=== PATIENT | female | born 1990 | race Caucasian/White ===

== ENCOUNTER 2016-09-20 15:24 | Emergency (ER) | payer BC, OTHER ==
[2016-09-20 16:09] VITALS: BP 122/67
--- NOTE | 2016-09-20 16:31 | UC ---
Abdominal Pain Female HPI - HPI Summary HPI Summary: pt c/o right side abdominal pain X 6 days. Pt has history of IBS and has frequent loose stools, pt reports that her stools have been more watery. Pt also , has positive history of ovarian cysts. Pt denies frequency, urgency, and dysuria with urination. Pt denies risk for or any unusual vaginal discharge. Pt has positive exposure to gastroenteritis - History of Current Complaint Chief Complaint: UCAbdominalPain Stated Complaint: LOWER RIGHT ABDOMINAL PAIN Time Seen by Provider: 09/20/16 16:12 Hx Obtained From: Patient Hx Last Menstrual Period: 2 WKS AGO ?: No Onset/Duration: Gradual Onset, Lasting Days Timing: Constant Severity Initially: Mild Severity Currently: Mild Location: Discrete At: RUQ, Discrete At: RLQ Radiates: No Radiates to: Back, Flank Character: Dull, Sharp Aggravating Factor(s): Food, Movement, Deep Breaths Alleviating Factor(s): NPO Associated Signs and Symptoms: Positive: Nausea, Diarrhea - stools more loose than baseline Allergies/Adverse Reactions: Allergies Allergy/AdvReac Type Severity Reaction Status Date / Time No Known Allergies Allergy Verified 09/20/16 16:08 PMH/Surg Hx/FS Hx/Imm Hx Previously Healthy: Yes Endocrine History Of: Denies: Diabetes, Thyroid Disease, Hyperthyroidism, Hypothyroidism, Dyslipidemia Cardiovascular History Of: Denies: Cardiac Disorders, Hypertension, Pacemaker/ICD, Myocardial Infarction , Congestive Heart Failure, Atrial Fibrillation, Deep Vein Thrombosis, Bleeding Disorders Respiratory History Of: Reports: Asthma - Inhaler use 3 years ago associated with pneumonia. Denies: COPD, Bronchitis, Pneumonia, Pulmonary Embolism GI/ History Of: Denies: Gastroesophageal Reflux, Ulcer, Gastrointestinal Bleed, Gall Bladder Disease, Kidney Stones, Diverticulitis, Renal Disease, Urosepsis Neurological History Of: Reports: Migraine Denies: TIA, CVA, Dementia, Seizures Psychological History Of: Reports: Depression Denies: Anxiety, Bipolar Disorder, Schizophrenia, Post Traumatic Stress Disorder Cancer History Of: Denies: Lung Cancer, Colorectal Cancer, Breast Cancer, Prostate Cancer, Cervical Cancer Other History Of: Negative For: HIV, Hepatitis B, Hepatitis C - Surgical History Surgical History: None - Family History Known Family History: Positive: Other - positive [facility] for GI disorder - Social History Lives: With Family Alcohol Use: None Substance Use Type: None Smoking Status (MU): Never Smoked Tobacco - Immunization History Most Recent Influenza Vaccination: may 2015 Review of Systems Constitutional: Negative Skin: Negative Eyes: Negative ENT: Negative Respiratory: Negative Cardiovascular: Negative Gastrointestinal: Abdominal Pain Genitourinary: Negative Motor: Negative Neurovascular: Negative Musculoskeletal: Negative Neurological: Negative Psychological: Negative All Other Systems Reviewed And Are Negative: Yes Physical Exam Triage Information Reviewed: Yes Appearance: Well-Appearing Vital Signs: Initial Vital Signs Temp 97.9 F 09/20/16 16:02 Pulse 97 09/20/16 16:02 Resp 16 09/20/16 16:02 BP 122/67 09/20/16 16:02 Pulse Ox 100 09/20/16 16:02 Vital Signs Reviewed: Yes Eye Exam: Normal ENT Exam: Normal Neck exam: Normal Respiratory Exam: Normal Cardiovascular Exam: Normal Abdominal Exam: Other Abdomen Description: Positive: CVA Tenderness (R), Other: - lateral RUQ pain with palpation Bowel Sounds: Positive: Present Musculoskeletal Exam: Normal Neurological Exam: Normal Psychological Exam: Normal Skin Exam: Normal Abd Pain Female Course/Dx - Differential Dx/Diagnosis Differential Diagnosis: Appendicitis, Diverticulitis, Irritable Bowel Syndrome, Ovarian Cyst, Urinary Tract Infection Provider Diagnoses: IBS. Gastroenteritis Discharge - Discharge Plan Condition: Stable Disposition: HOME Patient Education Materials: Acute Abdominal Pain (ED) Referrals: JOSH Buenrostro [Primary Care Provider] - Additional Instructions: It has been recommended that you seek more advanced care for your complaint of right side abdominal pain.
== END 2016-09-20 16:42 | disposition home or self-care (01) ==
LOC: UCCORT 15:24
DX: K58.9 Irritable bowel syndrome, unspecified (principal)
CPT/HCPCS: 99211; G0463